=== PATIENT | female | born 1970 | race Caucasian/White ===

== ENCOUNTER → 2016-07-27 | Outpatient (CLI) | payer MEDICARE, MEDICAID ==
[~2016-07-27] MED LIST: AMOXICOT500 MG PO; BENTYL20 MG PO; CELEXA20 MG PO; CITALOPRAM20 MG PO; CLINDAMYCIN150 MG PO; CLOMID 50MG TAB50 MG PO; DIAZEPAM10 MG PO; DOLOBID 500MG500 MG PO; FLAGYL500 MG PO; HYDROXYZINE HCL25 MG PO; KEFLEX 500MG.500 MG PO; LITHATE20 MG PO; MICONAZOLE45 GM/TUB1 TP; NAPROSYN 500MG500 MG PO; PEN-VK500 MG PO; RISPERDAL M-TAB2 MG PO; VALIUM 5MG TABLE5 MG PO
[2016-07-27 19:43] LABS: AMPHETAMINES/METAMPHETAMINES NEGATIVE ng/mL (<1000)
[2016-08-01 03:38] LABS: Opiates Negative (Cutoff=100)
== END ==
LOC: LAB 18:31
PROVIDERS: Emergency Medicine
DX: Z79.899 Other long term (current) drug therapy (principal)

== ENCOUNTER → 2016-11-23 | Outpatient (CLI) | payer MEDICARE, MEDICAID ==
[2016-11-23 18:41] LABS: AMPHETAMINES/METAMPHETAMINES NEGATIVE ng/mL (<1000)
== END ==
LOC: LAB 15:27
PROVIDERS: Emergency Medicine
DX: Z79.899 Other long term (current) drug therapy (principal)

== ENCOUNTER → 2016-12-23 | Outpatient (CLI) | payer MEDICARE, MEDICAID ==
[2016-12-23 18:24] LABS: AMPHETAMINES/METAMPHETAMINES NEGATIVE ng/mL (<1000)
== END ==
LOC: LAB 17:36
PROVIDERS: Emergency Medicine
DX: Z79.899 Other long term (current) drug therapy (principal)

== ENCOUNTER → 2017-01-20 | Outpatient (CLI) | payer MEDICARE, MEDICAID ==
[2017-01-20 15:46] LABS: AMPHETAMINES/METAMPHETAMINES NEGATIVE ng/mL (<1000)
[2017-01-22 08:36] LABS: FSH 153.4 mIU/mL (.); Progesterone 0.1 ng/mL (.)
== END ==
LOC: LAB 15:33
PROVIDERS: Emergency Medicine
DX: R53.83 Other fatigue (principal); Z79.899 Other long term (current) drug therapy

== ENCOUNTER → 2017-02-17 | Outpatient (CLI) | payer MEDICARE, MEDICAID ==
[2017-02-17 19:12] LABS: AMPHETAMINES/METAMPHETAMINES NEGATIVE ng/mL (<1000)
== END ==
LOC: LAB 18:13
PROVIDERS: Emergency Medicine
DX: Z79.899 Other long term (current) drug therapy (principal)